=== PATIENT | female | born 1930 | race Caucasian/White ===

== ENCOUNTER 2016-10-05 21:54 | Inpatient (IN) | payer MEDICARE, OTHER ==
--- NOTE | ~2016-10-05 | CN ---
Consultation Report [facility] [address] [place]. [address] NAME: LIVE CEBALLOS : [birth year] STATUS : ADM IN [facility]#: [id number] AGE: 86 ADM/REG DATE : 10/06/16 MR#: [id number] REPORT SERV DATE: 10/06/16 DICTATED BY: ISAIAS VERA DATE: 10/06/16 REPORT STATUS : Draft TRANSCRIBED BY: MODL DATE: 10/06/16 NEUROLOGICAL EVALUATION-CONSULTATION DATE OF CONSULTATION: 10/06/2016 REQUESTING PHYSICIAN: Dr. Lubin and Dr. Fairbanks. HISTORY OF PRESENT ILLNESS: This is an 86-year-old female, with known history of hypertension, peripheral vascular disease, chronic tobacco abuse, hyperlipidemia, history of possible brain aneurysm diagnosed in 2013, who was admitted through the emergency room with history of progressive weakness which started two days prior to admission. The patient apparently developed double vision, had difficulty with her balance, and some left-sided weakness. The patient was initially seen at her primary physician's office and then the following day, presented to the emergency room with worsening of slurring of her speech. There is no prior history of CVA or TIA as per the patient's daughter, who provided most of the history. Neurological consultation was requested to evaluate the patient's change in neurological status and to rule out a CVA. The patient herself stated that she does not have double vision, however, has blurring of vision, she is blind in the right eye, secondary to macular degeneration. The patient maybe less aware of her deficit than her family has been, since, the patient started having change in her status. As per patient's daughter in 2013, the patient was seen by a neurologist, as per the patient's daughter found "cerebral aneurysm in the back of the brain." The patient and family were told that the aneurysm was not operable and that it need to be followed clinically. The patient has not seen a neurologist since 2013. The patient has history of aortic aneurysm repair. During the surgery for aortic aneurysm repair, the patient had developed paroxysmal atrial fibrillation. As per patient's daughter in the past, she has had some periods of "atrial fibrillation" however, as per daughter has not been on anticoagulation. Currently, the patient is on one aspirin a day. MEDICATIONS PRIOR TO ADMISSION: Crestor 20 mg p.o. daily, diltiazem extended release 240 mg daily, melatonin 3 mg at bedtime, metoprolol 50 mg b.i.d., vitamin D, Exelon 9.5 mg p.o. daily, ranitidine 150 mg b.i.d., hydralazine p.r.n. unspecified amount, lisinopril 10 mg daily, and Mirapex 0.25 mg p.o. daily. PAST MEDICAL HISTORY: As mentioned above her past medical history includes history of hypertension, atrial fibrillation as mentioned above, recurrent osteoporosis, aortic aneurysm, status post repair, hypercholesteremia, dementia "mild." PAST SURGICAL HISTORY: history of shoulder surgery, hysterectomy, and abdominal aortic aneurysm repair four years ago. ALLERGIES: NO KNOWN ALLERGY. FAMILY HISTORY: The patient's family has history of hypertension and coronary artery Consultation Report [address] [address] NAME: LIVE CEBALLOS : [birth year] STATUS : ADM IN [facility]#: [id number] AGE: 86 ADM/REG DATE : 10/06/16 MR#: [id number] REPORT SERV DATE: 10/06/16 DICTATED BY: ISAIAS VERA DATE: 10/06/16 REPORT STATUS : Draft TRANSCRIBED BY: FADI DATE: 10/06/16 disease. The patient's father and brother had heart disease. There is no history of a stroke. Except for the patient's sister had a history of possible stroke a few years ago. The patient's daughter, who was present at her bedside stated that there is history of hypertension in the patient's children. REVIEW OF SYSTEMS: The patient and daughter denied recent history of falling, head trauma, history of TIA or CVA. There is no history of seizures. The patient is complaints does include chest pain or shortness of breath. However, the patient did have double vision, weakness involving her left face, and left arm and left leg. Difficulty ambulating and slurred speech. 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 The rest of 14 point of review of system was negative. SOCIAL HISTORY: The patient lives with her sister, who is 92 years old. The patient smokes one pack of cigarettes per week. There is no history of alcohol use. PHYSICAL EXAMINATION: GENERAL: The patient was somnolent, but arousable. Followed simple commands. Her speech was dysarthric. She was not able to provide a history and appears to have mild chronic dementia. VITAL SIGNS: Blood pressure 143/71, pulse was 86, respirations 20, and temperature was 97.8. HEAD AND NECK: Examination showed head to be normocephalic. There was no evidence of trauma. Auscultation of the neck showed no evidence of bruits. EYE: Sclerae were not icteric. Conjunctivae were pink. ENT: Tongue was midline. No atrophy or fibrillations were noted. Palate elevated symmetrically. Airway appeared slightly small. Mallampati class 3. CHEST: Symmetrical. LUNGS: Clear to auscultation. HEART: Regular S1 and S2. I did not appreciate any murmurs or rubs. ABDOMEN: Status post aortic aneurysm repair. Old well-healed postsurgical scar in the midline. EXTREMITIES: No clubbing, cyanosis. There is no peripheral edema. Peripheral pulses were palpable throughout. SKIN: Clear. No ecchymosis, petechiae, hemorrhages, or hypopigmentation noted. NEUROLOGIC: Mental status exam; the patient was aroused very easily, participated in a conversation very little, most of the history is obtained from patient's daughter. The patient herself appeared to have mild dementia, she had no complaints at this time. The patient denied having diplopia, denied having any significant problems. Her speech was dysarthric and difficult to say if there was an element of mild aphasia. Cranial nerve examination 2 through 12: Visual olea on confrontation showed absent vision on the right. Left visual field, the patient on confrontation appeared intact. Extraocular movements showed left eye having partial third nerve palsy. Lateral gaze was preserved with nystagmus and lateral gaze fast component to the left. The right eye showed no evidence of limitation of motion. The patient had no restriction of upward or downward gaze at this Consultation Report [address] [place]. [address] NAME: LIVE CEBALLOS : [birth year] STATUS : ADM IN [facility]#: [id number] AGE: 86 ADM/REG DATE : 10/06/16 MR#: [id number] REPORT SERV DATE: 10/06/16 DICTATED BY: ISAIAS VERA DATE: 10/06/16 REPORT STATUS : Draft TRANSCRIBED BY: FADI DATE: 10/06/16 time. Pupils were 2 to 3 mm both equal and reactive to light. Facial sensation appeared intact as per the patient's response, however, the patient did have a mild left facial weakness. Lower cranial nerves show no evidence of abnormalities. Tongue was midline. No atrophy or fibrillations were noted. Palate elevated symmetrically. The patient was able to shrug her shoulders, and sternocleidomastoid and trapezius muscles appeared intact. No asymmetry was present. Motor exam: At this time, the patient had very minimal left-sided weakness noted with a very mild pronator drift on the left. The patient was able to move all four extremities. Strength difficult to estimate appeared intact on the right and on the left 4+ to 5-/5. Deep tendon reflexes were symmetrical. Equivocal Babinski on the left. Sensory exam showed no evidence of asymmetry to temperature and light touch. The patient however had minimal left-sided sensory neglect. Cerebellar exam showed very minimal ataxia on [id number]. Left slightly greater than right. Gait could not be tested at this time. DIAGNOSTIC DATA: CT scan of the head showed evidence of prior infarction involving the left occipital region. Moderate chronic microvascular ischemic changes were seen also, which was commented on by radiology showing since the prior exam. 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 The encephalomalacia in the left occipital region is new from 2013. IMPRESSION: 1. Probable [id number] brainstem cerebrovascular accident. The patient has signs of accident. 2. The patient has signs of previous cerebrovascular accident in posterior cerebral artery and posterior circulation distribution, new since 2013. 3. Abnormal configuration of the basilar artery noted on CT with a definite displacement of the brainstem region adjacent, although, appears the same since 2014. The patient will require additional imaging studies. 4. Increased risk of stroke and the patient's risk factors include hypertension, hyperlipidemia, chronic tobacco abuse, prior history of strokes, peripheral vascular disease, and family history of coronary artery disease, hypertension, and stroke in patient's sister. Additional risk factor, the patient has recurrent atrial fibrillation or paroxysmal atrial fibrillation. The patient has not been on anticoagulation. Anticoagulation may present the potential risk in patient with known history of cerebral aneurysm. 5. History of mild dementia. 6. Probable chronic obstructive pulmonary disease. 7. The patient is at risk for obstructive sleep apnea having a small airway and recent strokes perhaps brainstem stroke. At present, would continue aspirin. Obtain MRI, MRA, DVT prophylaxis, stroke education, smoking cessation, physical therapy, occupational therapy, and speech therapy to evaluate for increased risk of aspiration. The patient also has an increased risk of falling and injury. Follow stroke guidelines and protocol. We will continue following the patient. Review neurosurgical referral Consultation Report [address] [place]. [address] NAME: LIVE CEBALLOS : [birth year] STATUS : ADM IN [facility]#: [id number] AGE: 86 ADM/REG DATE : 10/06/16 MR#: [id number] REPORT SERV DATE: 10/06/16 DICTATED BY: ISAIAS VERA DATE: 10/06/16 REPORT STATUS : Draft TRANSCRIBED BY: FADI DATE: 10/06/16 if needed. Thank you for allowing me to participate in this patient's care. BAYRON/FADI Isaias Vera MD / [id number] CC: MD Hiram Bolaños Jr., M.D.
--- NOTE | ~2016-10-05 | CN ---
Consultation Report [facility] [address] [place]. [address] NAME: LIVE CEBALLOS : [birth year] STATUS : ADM IN [facility]#: [id number] AGE: 86 ADM/REG DATE : 10/06/16 MR#: [id number] REPORT SERV DATE: 10/07/16 DICTATED BY: ALIRIO ORTIZ DATE: 10/07/16 REPORT STATUS : Draft TRANSCRIBED BY: MODL DATE: 10/07/16 CARDIOLOGY CONSULT DATE OF CONSULTATION: 10/07/2016 REQUESTING PHYSICIAN: Dr. Krueger of the Hospitalist Service. REASON FOR CONSULTATION: Atrial fibrillation with rapid ventricular response. HISTORY OF PRESENT ILLNESS: Ms. Ceballos is an 86-year-old female, who is brought to the ER by family with acute-onset left-sided weakness and hemiparesis with dysarthria consistent with an acute CVA. She was seen by Neurology and evaluated. 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 A followup MRI did confirm acute CVA as well as vertebral artery, basilar aneurysm changes with mass-effect. In this setting, she has had paroxysms of atrial fibrillation with rapid ventricular response at rate of 130-140 beats per minute. She otherwise, appears to be asymptomatic with this, but history is difficult to obtain as she does have dysarthria. She denies having any chest pain or shortness of breath. She denies palpitations. She has had no orthopnea or edema. REVIEW OF SYSTEMS: Pertinent positives and negatives are as outlined above, all others are negative. PAST MEDICAL HISTORY: 1. History of paroxysmal atrial fibrillation, remote. 2. Peripheral arterial disease, status post AAA endovascular repair. 3. Hypertension. 4. Hyperlipidemia. 5. Vascular dementia. CURRENT HOME MEDICATIONS: 1. Aspirin 81 mg daily. 2. Calcium with vitamin D supplementation. 3. Meclizine p.r.n. 4. Klonopin p.r.n. 5. Vitamin B12 supplementation. 6. Amitiza as needed. 7. Metoprolol 50 mg twice daily. 8. Zantac 150 mg twice daily. 9. Crestor 20 mg daily. 10.Potassium supplementation. ALLERGIES: NO KNOWN DRUG ALLERGIES. SOCIAL HISTORY: Ms. Ceballos lives at home with her 92-year-old sister. Prior to Consultation Report [facility] [address] [address] NAME: LIVE CEBALLOS : [birth year] STATUS : ADM IN [facility]#: [id number] AGE: 86 ADM/REG DATE : 10/06/16 MR#: [id number] REPORT SERV DATE: 10/07/16 DICTATED BY: ALIRIO ORTIZ DATE: 10/07/16 REPORT STATUS : Draft TRANSCRIBED BY: MODL DATE: 10/07/16 presentation of the acute CVA, she was independent of all ADLs. She does not use tobacco products or consume alcohol. FAMILY HISTORY: Noncontributory. No significant family history of premature CAD or cardiomyopathy. PHYSICAL EXAMINATION: VITALS: Temperature is 98, pulse is 90, respirations 16, and blood pressure is 170/80. GENERAL: A well-developed, frail appearing female, who is currently in no acute distress. HEENT: Sclerae anicteric, mucous membranes moist and without lesions. NECK: No jugular venous distention. No hepatojugular reflux, carotid upstrokes 2+ and symmetric. There are no carotid or subclavian bruit. LUNGS: Mildly decreased breath sounds throughout. No wheezes or crackles. CARDIOVASCULAR: Currently regular with distant S1 and S2. No audible S3. No audible murmurs. No parasternal lift. PMI is not palpable. ABDOMEN: Soft and nontender with positive and normoactive bowel sounds. PULSES: Radial and dorsalis pedis pulses are 1+ and symmetric. EXTREMITIES: Warm and without edema. SKIN: No clubbing or cyanosis, no rashes or lesions. NEUROLOGIC: Left upper and left lower extremity 1-2/5 in strength. Dysarthria noted. IMPRESSION: 1. Paroxysmal atrial fibrillation with rapid ventricular response. 2. Cerebrovascular accident, acute. 3. Vertebrobasilar artery aneurysm with mass-effect. 4. Hypertension. 5. History of peripheral arterial disease, status post abdominal aortic aneurysm repair. 6. Hyperlipidemia. PLAN: Ms. Ceballos is a frail 86-year-old female with an acute CVA complicated by left hemiparesis and dysarthria. She will need rehabilitation placement and half-way facility care as she currently lives at home with her 92-year-old sister. Her care was complicated by vertebrobasilar artery aneurysm with mass-effect. Her care was directly discussed with Neurology given high risk for recurrent CVA and high risk for intracranial hemorrhage with anticoagulation. At this time, it has been deemed most appropriate to treat her more conservatively. She is felt to be a prohibitive risk for anticoagulation at this time. We will prescribe Plavix 75 mg daily with 81 mg aspirin daily. With this, we will pursue more aggressive rhythm control by increasing metoprolol to 50 mg three times daily and adding low-dose amiodarone 100 mg daily. Continue current conservative medical management. Care plan was discussed with family at bedside. WES/FADI Consultation Report [address] [place]. [address] NAME: LIVE CEBALLOS : [birth year] STATUS : ADM IN PAT#: [id number] AGE: 86 ADM/REG DATE : 10/06/16 MR#: [id number] REPORT SERV DATE: 10/07/16 DICTATED BY: ALIRIO ORTIZ DATE: 10/07/16 REPORT STATUS : Draft TRANSCRIBED BY: FADI DATE: 10/07/16 Alirio Ortiz M.D. / [id number] CC: MD Hiram Bolaños Jr., M.D.
--- NOTE | ~2016-10-05 | DS ---
Discharge Summary [facility] [address] [place]. [address] NAME: LIVE CEBALLOS : [birth year] STATUS : DIS IN PAT#: [id number] AGE: 86 ADM/REG DATE : 10/06/16 MR#: [id number] REPORT SERV DATE: 10/14/16 DICTATED BY: KARLY TOBIN DATE: 10/12/16 REPORT STATUS : Draft TRANSCRIBED BY: MODL DATE: 10/12/16 ADMISSION DATE: 10/06/2016 DISCHARGE DATE: 10/12/2016 CONSULTANTS: Isaias Vera MD; Dr. Sachi Holder, Neurology; Alirio Villeda M.D.; Narayan Patel M.D.; and Dr. Uriel Morales, Cardiology. DISCHARGE DIAGNOSES: 1. 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 3. Atrial fibrillation with rapid ventricular response. 4. Sick sinus syndrome requiring pacemaker placement this hospitalization for tachycardia- bradycardia. 5. Senile dementia. 6. Episode of metabolic encephalopathy, now resolved. 7. Peripheral arterial disease with previous repair of abdominal aortic aneurysm, 2006. 8. Macular degeneration with blindness, right eye. 9. Hypertension. HISTORY: This patient presented with weakness, left side arm and leg, slurring of the speech. It began about 2 days prior to her presentation. The patient had a CT scan of the brain showing 1.7 cm focal encephalomalacia, medial left occipital lobe, new from 2013, but appeared chronic. Mild diffuse chronic atrophy. Moderate deep white matter changes and dolichoectasia of the basilar artery at the level of the foramen magnum. The patient was seen the day of admission early on by neurologist, Dr. Vera. She felt the patient probably had an acute brainstem infarction, felt the patient was too delayed to proceed with tPA. The patient was referred to our team for inpatient care. Further imaging included MRI of the brain, which revealed an acute right pontine infarct, electronic equipment maint tech branch distribution. No bleeding. Aneurysm changes of the basilar artery with dolichoectasia of the vertebrobasilar system and mass effect on the brainstem. The family indicated that several years back, prior to 2013, the patient was found to have basilar artery aneurysm and it was not felt to be surgical. The family made it clear that the patient was DNR and do not intubate. This is based on the patient's prior descriptions to them of her wishes and her age and condition. For the patient's stroke, she was given aspirin high dose, statin, Plavix to reduce her chcf risk of secondary stroke. Echocardiogram 10/07/2016 showed left atrial size 3.4 cm, left ventricular ejection fraction 60%, aortic valvular sclerosis but no aortic stenosis. There was negative bubble study. MRA of the neck showed diffuse atherosclerotic changes with aneurysm of the basilar and carotid terminus on the left side. Diffuse atherosclerotic changes of the carotid siphons also. Further in the neck, there was less than 50% stenosis of the internal carotid arteries. The patient was felt by PT and OT to need inpatient rehab. Those arrangements were in process but the patient was developing paroxysms of atrial fibrillation with rapid Discharge Summary [address] [place]. [address] NAME: LIVE CEBALLOS : [birth year] STATUS : DIS IN PAT#: [id number] AGE: 86 ADM/REG DATE : 10/06/16 MR#: [id number] REPORT SERV DATE: 10/14/16 DICTATED BY: KARLY TOBIN DATE: 10/12/16 REPORT STATUS : Draft TRANSCRIBED BY: MODAntoni DATE: 10/12/16 ventricular response. The patient's TSH is normal at 0.916. The patient was seen by Cardiology, Dr. Villeda, and placed on metoprolol and low-dose amiodarone. Unfortunately, she continued to have more frequent episodes of paroxysmal atrial fibrillation with very rapid ventricular response requiring increased quantity of beta drew and amiodarone and Cardizem to try to slow her down. She still was having very rapid rates and then suddenly developed significant sinus bradycardia on the morning of 10/10/2016 with heart rates in the 30s. Fortunately, her neurologic status did not worsen, her O2 sats were normal, her blood pressure was normal, but her heart rate continued to stay in the 30s. I gave her one dose of glucagon. Her heart rate came up to the 40s and 50s. Cardiology saw the patient, Dr. Patel, and they felt that with her sick sinus syndrome and tachycardia-bradycardia, it would be impossible to control her tachycardia without risking profound bradycardia, therefore the patient and family were advised to have a pacemaker placed. Dr. Morales placed a dual chamber pacemaker on 10/11/2016. The patient tolerated it very well. Thereafter, Dr. Morales re-initiated medicines that we had held because of her bradycardia. He started her back on amiodarone at 200 mg t.i.d., metoprolol 50 mg t.i.d., Cardizem 30 mg p.o. t.i.d. Holding metoprolol or Cardizem if blood pressure less than 100. With this, the patient has had control of her rapid heart rate and no bradycardia. She is felt to need inpatient rehab and those arrangements have been made. She is to follow up with Dr. Villeda at [facility], 11/22/2016 at 0815 and follow up with the pacemaker clinic at [facility], 10/28/2016 at 08:15 a.m. Also, longitudinally follow up with Dr. Hiram Solano, her primary provider in [place]. Plan is for her to go to [facility] for rehab. DISCHARGE MEDICATIONS: Aspirin 81 mg daily; Lipitor 80 mg daily; amiodarone 200 mg t.i.d. (Cardiology will likely taper this dose down when they see her in followup); Plavix 75 mg daily; vitamin B12 at 1000 mcg injected every 30 days into the muscle; Caltrate with vitamin D 600 mg daily; Cardizem 30 mg q.8 hours, hold if systolic less than 100; metoprolol 50 mg q.8 hours, hold if systolic less than 100; Seroquel 12.5 mg at bedtime to help her with sleep which has been a significant part of her dementia in the past and this has helped considerably; Tylenol 650 q.4 hours p.r.n. pain; Amitiza 8 mg b.i.d. p.r.n. constipation; MiraLAX one packet daily p.r.n.; Klonopin 0.25 mg at bedtime p.r.n. insomnia; Crestor 20 mg at bedtime; artificial tears p.r.n.; Zantac 150 mg b.i.d. p.r.n. indigestion. I spent 36 minutes today with the patient and her son with discharge planning. DARWIN/FADI Karly Tobin M.D. / [id number] CC: Discharge Summary [address] [address] NAME: LIVE CEBALLOS : [birth year] STATUS : DIS IN PAT#: [id number] AGE: 86 ADM/REG DATE : 10/06/16 MR#: [id number] REPORT SERV DATE: 10/14/16 DICTATED BY: KARLY TOBIN DATE: 10/12/16 REPORT STATUS : Draft TRANSCRIBED BY: MODL DATE: 10/12/16 Annelise Ferrera Jr., M.D. [facility]
--- NOTE | ~2016-10-05 | CN ---
Consultation Report [facility] [address] [place]. [address] NAME: LIVE CEBALLOS : [birth year] STATUS : ADM IN PAT#: [id number] AGE: 86 ADM/REG DATE : 10/06/16 MR#: [id number] REPORT SERV DATE: 10/11/16 DICTATED BY: POLA PATEL DATE: 10/10/16 REPORT STATUS : Draft TRANSCRIBED BY: MODL DATE: 10/10/16 EP CONSULTATION DATE OF CONSULTATION: INDICATION: Sick sinus syndrome (tachy-vel syndrome). HISTORY: The patient is an 86-year-old white female, who is admitted 10/07/2016, with a left sided weakness and dysarthria. 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 She has had slow improvement of her motor skills. She is able to speak clearly, albeit slowly. She had developed atrial fibrillation with a ventricular response rate of 140 beats per minute. She had initially returned to sinus rhythm, but then redeveloped her atrial fib. She was given beta drew, amiodarone, as well as diltiazem. With the drug therapy, she has returned to sinus rhythm albeit with an extremely slow ventricular response rate in the 30 to 40 beat per minute range. This has also been associated with fatigue and sleepiness. Because of this, we are asked to see her for consideration of pacemaker placement. CURRENT HOME MEDICATIONS: Aspirin 81 a day, calcium plus D, clonazepam 0.25 at bedtime, cyanocobalamin, Amitiza 8 mg p.r.n., meclizine 12.5 daily, metoprolol 50 b.i.d., potassium 550 mg b.i.d., rosuvastatin 20 a day, ranitidine 150 b.i.d. ALLERGIES: INTOLERANCES, NONE KNOWN. SOCIAL HISTORY: Lives with her sister, who is 92. The son is in attendance. She smokes one pack of cigarettes per day, no alcohol use. FAMILY HISTORY: Positive for hypertension and coronary disease. The patient's father and brother had heart disease. No history of stroke except for the patient's sister, who may have had a stroke number of years ago. PAST MEDICAL HISTORY AND REVIEW OF SYSTEMS: Include hypertension, a sick sinus syndrome as noted above, previous abdominal aortic aneurysm repair (open repair), hyperlipidemia, mild cognitive dysfunction, cerebral aneurysm initially discovered in 2013. The patient is not on anticoagulation due to the cerebral aneurysm finding. PHYSICAL EXAMINATION: GENERAL: An 86-year-old white female presently blood pressure 163/88, pulse 38 and regular, respirations 18. SKIN: No xanthelasmas. HEENT: She is normocephalic. There is no pallor. Sclerae white. JVD is not elevated. CHEST: No crackles. CARDIAC: S1 normal, S2 is physiologic. No gallops or murmurs. ABDOMEN: Without tenderness. EXTREMITIES: Without edema. No clubbing. Consultation Report [place] [id number] [place] [place]. [address] NAME: LIVE CEBALLOS : [birth year] STATUS : ADM IN [facility]#: [id number] AGE: 86 ADM/REG DATE : 10/06/16 MR#: [id number] REPORT SERV DATE: 10/11/16 DICTATED BY: POLA PATEL DATE: 10/10/16 REPORT STATUS : Draft TRANSCRIBED BY: MODAntoni DATE: 10/10/16 NEUROLOGIC: There is a partial third nerve palsy, minimal left-sided weakness. Mild pronator drift. Asymmetry to touch. Slight ataxia on finger to nose per Neurology. The patient likely also has sleep apnea, although this may be a central phenomenon. LABORATORY DATA: BUN 16, creatinine 1.2, potassium 3.1, white count 8.8, hemoglobin 13.5. IMPRESSION: Sick sinus syndrome. She clearly is not going to tolerate rate control and by the time we are able to control her rate, she becomes bradycardiac. A pacemaker support appears reasonable given the clinical presentation. Risks and benefits have been discussed with her son. I have told her likely Dr. Morales will be the implanting physician. RIK/FADI Pola Patel M.D. / [id number] CC: Annelise Ferrera Jr., M.D. [facility]
--- NOTE | ~2016-10-05 | HP ---
History And Physical [place] [id number] [place]. [address] NAME: LIVE CEBALLOS : [birth year] STATUS : ADM IN [facility]#: [id number] AGE: 86 ADM/REG DATE : 10/06/16 MR#: [id number] REPORT SERV DATE: 10/06/16 DICTATED BY: SHON JEAN-BAPTISTE DATE: 10/06/16 REPORT STATUS : Draft TRANSCRIBED BY: MODAntoni DATE: 10/06/16 DATE OF ADMISSION: 10/06/2016 CHIEF COMPLAINT: Increased confusion and weakness and change in speech. HISTORY OF PRESENT ILLNESS: The patient is an 86-year-old female with past medical history of hypertension, paroxysmal atrial fibrillation during surgery for abdominal aneurysm with subsequent resolution, dementia, hyperlipidemia, and a history of brain aneurysm, who presents after having progressive weakness, left sided over right, requiring increased assistance that occurred approximately at 4:00 to 4:30 today. The patient in addition has a history of slight slurring and decompensation of speech but today was significantly more pronounced than normal. Symptoms are constant and moderate to severe in severity. No pain quality symptoms or radiating symptoms. There is no associated nausea, vomiting, fever, or chills but did have increased weakness including no ability to even go to the bathroom without assistance, requiring two-people assist just to get to the bathroom which normal she is able to. Has only mild assist to do ADLs. Symptoms are reproducible with activity but no relieving symptoms, still currently present at bedside. The patient also has had mild diplopia but able to tolerate food. REVIEW OF SYSTEMS: GENERAL: No fever or chills but increased weakness. HEENT: Eyes, does have mild diplopia and does have history of macular degeneration. ENT: No sinus drainage or sore throat. NEUROLOGIC: Does have numbness and weakness in the left arm, speech changes, and vision changes. SKIN: No rashes or bruising. RESPIRATORY: No shortness of breath or cough. CV: No chest pain or palpitations. GI: No nausea, vomiting, or diarrhea. : No dysuria or hematuria. MUSCULOSKELETAL: No myalgias or arthralgias, above baseline. ENDO: No fatigue or polyuria. HEME: No bleeding or bruising. IMMUNOLOGIC: No rhinorrhea per stated. PSYCHIATRIC: No anxiety but does have history of dementia. PAST MEDICAL HISTORY: Noted for hypertension; hyperlipidemia; atrial fibrillation, resolved, but was reported paroxysmal secondary to abdominal aneurysm; osteoporosis; AAA, status post repair; and smoking history. PAST SURGICAL HISTORY: Shoulder surgery, hysterectomy, and AAA. ALLERGIES: NO KNOWN DRUG ALLERGIES. SOCIAL HISTORY: Lives with sister who is in her 90s. Continues to smoke. No alcohol. Multiple children. No illicits. History And Physical [address] [place]. [address] NAME: LIVE CEBALLOS : [birth year] STATUS : ADM IN [facility]#: [id number] AGE: 86 ADM/REG DATE : 10/06/16 MR#: [id number] REPORT SERV DATE: 10/06/16 DICTATED BY: SHON JEAN-BAPTISTE DATE: 10/06/16 REPORT STATUS : Draft TRANSCRIBED BY: FADI DATE: 10/06/16 FAMILY HISTORY: Heart disease and mother had stomach issues. PHYSICAL EXAMINATION: VITAL SIGNS: Patient's blood pressure is 168/89, temperature is 98, pulse is 87, respirations are 16, and O2 saturations 96% on room air. GENERAL: Elderly but in no acute distress. HEENT: Eyes: Does have left eye with left lateral gaze noted, decreased medial draw with left eye, and left eye with right-side beating nystagmus. At baseline, the patient does have central loss of vision due to degenerative changes and follows with Ophthalmology as an outpatient. ENT: Nares patent. Tongue with left-sided deviation. RESPIRATORY: Clear to auscultation. No wheezes. CV: Regular rate. No rubs. GI: Soft, nontender, and nondistended. Bowel sounds positive. : Deferred. MUSCULOSKELETAL: Moves all extremities, however, left side grossly weaker than right side. SKIN: Warm and dry. LYMPH: No cervical lymphadenopathy. HEME: No bleeding or bruising. NEUROLOGIC: Does have left eye lateral deviation with medial nystagmus. Right eye, central chronic loss of vision due to macular degeneration changes. Still has preserved peripheral vision in the right eye. The left eye has decreased medial vision due to gaze, difficulty with tracking on zulwqq-lq-cxxi. Tongue with left-sided deviation. Does have symmetrical brow wrinkle. Possibly mild facial deviation but minimal on current exam. Left hand significantly weaker than the right hand but sensation is intact, although the patient does report numbness feeling despite sensation. Left leg weaker than right, approximately 4 on left side, 4+ on right upper and lower extremities. Gait not tested. PSYCHIATRIC: Appropriate mood and affect. Pleasant, joking manner, but is hard of hearing. LABORATORY DATA: Brain without contrast, no acute intracranial pathology, ohjgm-tt-etgukjaa 1.7-cm diameter focal encephalomalacia, medial left occipital lobe, new from 2013, chronic well circumcised appearance, mild diffuse cerebral involutional changes, and mild-to- moderate deep white matter chronic microvascular changes, progressed since 2014, stable. 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 WBC count 13.7. H and H 12.8 and 37.8. Platelets 133. INR 1.1. Sodium 141, potassium 3.3, chloride 102, bicarb 27, and BUN and creatinine 19 and 1.04. Glucose 89. LFTs within normal limits. Troponin negative. Urinalysis, negative nitrite and leuk esterase. However, the patient family reports that 24 hours ago the patient did have positive UA and is currently on treatment for positive cultures. HOME MEDICATIONS: Artificial tears, aspirin, Caltrate, Klonopin, vitamin B12. Amitiza, meclizine, Lopressor, potassium gluconate, Zantac, and Crestor. ASSESSMENT: 1. Likely blmiq-tr-uhprvxeq stroke, non tPA candidate. 2. Hypertension. 3. Urinary tract infection with leukocytosis. 4. Dementia. History And Physical [address] [address] NAME: LIVE CEBALLOS : [birth year] STATUS : ADM IN [facility]#: [id number] AGE: 86 ADM/REG DATE : 10/06/16 MR#: [id number] REPORT SERV DATE: 10/06/16 DICTATED BY: SHON JEAN-BAPTISTE DATE: 10/06/16 REPORT STATUS : Draft TRANSCRIBED BY: FADI DATE: 10/06/16 5. Paroxysmal atrial fibrillation. 6. Hyperlipidemia. 7. Hypokalemia. 8. Tobacco use. PLAN: 1. For stroke, ADLs discussed with Neurology, non tPA candidate, time frame greater than 4 hours. Does have history of aneurysm. Does have clinical signs of left eye deviation, left tongue deviation, left-sided weakness greater than right. Abnormal CT, will have Neurologic consult, stroke order set initiated. CT abnormalities noted above. 2. Hypertension, exercise until permissive, will resume home medications. 3. UTI, leukocytosis, IV fluids, IV antibiotics, currently UA negative, however, has already received 24 hours of treatment, p.o., unclear on medications .. 4. Dementia, it appears mental status is slightly at baseline; however, motor status decompensated, treat possible underlying mubum-dp-nvafzqcl stroke. 5. Paroxysmal atrial fibrillation, this was secondary to surgery induced, previously saw Dr. Ricks, and has been signed off since. 6. Hyperlipidemia, statin. 7. Hypokalemia, replace. 8. Tobacco use, nicotine patch. All questions answered with the patient's family at bedside. Anticipate greater than two midnights inpatient stay. DDN/MODL Shon Jean-Baptiste MD / [id number] CC: Annelise Mason JR
[2016-10-05 21:47] LABS: BASOPHILS 0.1 %; BASOPHILS ABSOLUTE 0.02 10/3/uL (0.0-0.16); EOSINOPHILS 2.8 %; EOSINOPHILS ABSOLUTE 0.39 10/3/uL (0.0-0.53); HEMOGLOBIN 12.8 g/dL (12.0-16.0); IMMATURE GRANULOCYTES 0.3 %; IMMATURE GRANULOCYTES ABSOLUTE 0.04 10/3/uL (0.0-0.11); LYMPHOCYTES 12.2 %; LYMPHOCYTES ABSOLUTE 1.67 10/3/uL (0.67-4.30); MEAN CORPUS HGB CONC 33.9 g/dL (32.0-36.0); MEAN CORPUSCULAR HEMOGLOB 31.4 pg (26.0-34.0); MEAN PLATELET VOLUME 11.7 fL (9.2-13.0); MONOCYTES 6.7 %; MONOCYTES ABSOLUTE 0.92 10/3/uL (0.21-1.20); NEUTROPHILS 77.9 %; NEUTROPHILS ABSOLUTE 10.65 10/3/uL (2.02-8.40); PLATELET COUNT 133 10/3/uL (150-400); RBC DISTRIBUTION WIDTH 13.3 % (12.0-16.0); RED CELL COUNT 4.08 10/6/uL (4.0-5.6)
[2016-10-05 21:48] LABS: HEMATOCRIT 37.8 % (36.0-48.0); MEAN CORPUSCULAR VOLUME 92.6 fL (80-100); WHITE BLOOD CELLS 13.7 10/3/uL (4.5-10.5)
[2016-10-05 21:49] LABS: MANUAL DIFF NO %
[~2016-10-05 21:54] MED LIST: AMITIZA PO; AT25 PO; C1 PO; CARTIA XT240 MG/24 PO; CRESTOR20 MG PO; EXELON9.5T TOP; LOP50 PO; MELA3 PO; MIRAPEX250 PO; VITAMIN D 3 PO; ZANTAC150 MG PO; ZESTRIL10 MG PO
[2016-10-05 22:02] LABS: INTERNATIONAL NORMAL RATI 1.1 UNITS (-); PARTIAL THROMBO TIME 27.6 SEC (22.5-37.2); PROTIME (NOT ORD) 13.8 SEC (12.0-14.5)
[2016-10-05 22:05] LABS: ALBUMIN 3.6 G/DL (3.5-5.0); ALKALINE PHOSPHATASE 61 U/L (45-117); CALCIUM, SERUM 8.5 MG/DL (8.5-10.4); CHEST PAIN PROFILE TAT 0 Hrs 21 Mins; CHLORIDE, SERUM 102 MMOL/L (96-112); CO2 (CARBON DIOXIDE) 27 MMOL/L (24-34); CREATININE 1.04 MG/DL (0.55-1.02); DIRECT BILIRUBIN 0.2 MG/DL (0.0-0.4); GFR AFRICAN AMERICAN 56 ML/MIN (>=60); GFR NON AFRICAN AMERICAN 48 ML/MIN (>=60); GLUCOSE, SERUM 89 MG/DL (60-99); INDIRECT BILIRUBIN(NOT ORDER) 0.3 MG/DL (0.1-0.9); POTASSIUM, SERUM 3.3 MMOL/L (3.5-5.3); SGOT(AST) 14 U/L (5-40); SGPT(ALT) 13 U/L (5-65); SODIUM, SERUM 141 MMOL/L (135-148); TOTAL BILIRUBIN 0.5 MG/DL (0-1.2); TOTAL PROTEIN 7.4 G/DL (6.0-8.5); TROPONIN I <0.02 NG/ML (<0.05)
[2016-10-05 22:10] LABS: BUN (BLOOD UREA NITROGEN) 19 MG/DL (6-23)
[2016-10-05 23:29] LABS: ASCORBIC ACID (UR NOT ORDER) NEG (NEG); BILIRUBIN, URINE NEGATIVE (NEG); ER URINALYSIS TAT 0 Hrs 00 Mins; KETONE, URINE 20 MG/DL (NEG); LEUKOCYTE ESTERASE(NOT OR NEG (NEG); NITRITE (URINE) NEG (NEG); WBC (NOT ORDERED) (RFLEX) 2 (0-5)
[2016-10-06] MEDS ORDERED: ASAB PO (00:26)
[2016-10-06] MEDS ORDERED: LOP50 PO (00:27)
[2016-10-06] MEDS ORDERED: B121000P IM (00:27)
[2016-10-06] MEDS ORDERED: KLONO5 PO (00:27)
[2016-10-06] MEDS ORDERED: CALTRA600D PO (00:27)
[2016-10-06] MEDS ORDERED: POT GLUCONAT2.5 MEQ PO (00:27)
[2016-10-06] MEDS ORDERED: CRESTOR20 MG PO (00:27)
[2016-10-06] MEDS ORDERED: AMITIZA8 MCG PO (00:28)
[2016-10-06] MEDS ORDERED: ZANTAC150 MG PO (00:28)
[2016-10-06] MEDS ORDERED: BION TEARS OPH (00:29)
[2016-10-06] MEDS ORDERED: MCZ125 PO (00:29)
[2016-10-06 09:59] LABS: ALBUMIN 3.1 G/DL (3.5-5.0); CHLORIDE, SERUM 109 MMOL/L (96-112); CO2 (CARBON DIOXIDE) 24 MMOL/L (24-34); CREATININE 0.83 MG/DL (0.55-1.02); GFR AFRICAN AMERICAN 73 ML/MIN (>=60); GFR NON AFRICAN AMERICAN 63 ML/MIN (>=60); GLOBULIN 3.2 G/DL (2.5-4.1); GLUCOSE, SERUM 77 MG/DL (60-99); POTASSIUM, SERUM 3.2 MMOL/L (3.5-5.3); SGOT(AST) 12 U/L (5-40); SGPT(ALT) 9 U/L (5-65); SODIUM, SERUM 144 MMOL/L (135-148); TOTAL BILIRUBIN 0.5 MG/DL (0-1.2); TOTAL PROTEIN 6.3 G/DL (6.0-8.5); TRIGLYCERIDE 75 MG/DL (< 150); ULTRASENSITIVE TSH 0.916 MCIU/ML (0.358-3.740)
[2016-10-06 10:01] LABS: ALKALINE PHOSPHATASE 47 U/L (45-117); BUN (BLOOD UREA NITROGEN) 12 MG/DL (6-23); CALCIUM, SERUM 7.3 MG/DL (8.5-10.4); CHOL/HDL RATIO(NOT ORDER) 2.1 (0-5); CHOLESTEROL 101 MG/DL (< 200); HDL CHOLESTEROL 48 MG/DL (> 49); LDL CHOLESTEROL 38 MG/DL (< 130); NON-HDL CHOLESTEROL 53 MG/DL (< 160)
[2016-10-06 11:22] LABS: BASOPHILS 0.4 %; BASOPHILS ABSOLUTE 0.03 10/3/uL (0.0-0.16); EOSINOPHILS 4.3 %; EOSINOPHILS ABSOLUTE 0.37 10/3/uL (0.0-0.53); HEMOGLOBIN 11.3 g/dL (12.0-16.0); IMMATURE GRANULOCYTES 0.1 %; IMMATURE GRANULOCYTES ABSOLUTE 0.01 10/3/uL (0.0-0.11); LYMPHOCYTES 19.8 %; LYMPHOCYTES ABSOLUTE 1.69 10/3/uL (0.67-4.30); MEAN CORPUS HGB CONC 33.4 g/dL (32.0-36.0); MEAN CORPUSCULAR HEMOGLOB 31.3 pg (26.0-34.0); MEAN CORPUSCULAR VOLUME 93.6 fL (80-100); MEAN PLATELET VOLUME 12.4 fL (9.2-13.0); MONOCYTES 8.8 %; MONOCYTES ABSOLUTE 0.75 10/3/uL (0.21-1.20); NEUTROPHILS 66.6 %; NEUTROPHILS ABSOLUTE 5.68 10/3/uL (2.02-8.40); PLATELET COUNT 119 10/3/uL (150-400); RBC DISTRIBUTION WIDTH 13.7 % (12.0-16.0); RED CELL COUNT 3.61 10/6/uL (4.0-5.6); WHITE BLOOD CELLS 8.5 10/3/uL (4.5-10.5)
[2016-10-06 11:25] LABS: HEMATOCRIT 33.8 % (36.0-48.0); MANUAL DIFF NO %
[2016-10-06 11:29] LABS: PARTIAL THROMBO TIME 32.7 SEC (22.5-37.2)
[2016-10-06 11:30] LABS: INTERNATIONAL NORMAL RATI 1.1 UNITS (-); PROTIME (NOT ORD) 14.5 SEC (12.0-14.5)
[2016-10-07 06:11] LABS: BASOPHILS 0.2 %; BASOPHILS ABSOLUTE 0.02 10/3/uL (0.0-0.16); EOSINOPHILS 4.4 %; EOSINOPHILS ABSOLUTE 0.43 10/3/uL (0.0-0.53); IMMATURE GRANULOCYTES 0.4 %; IMMATURE GRANULOCYTES ABSOLUTE 0.04 10/3/uL (0.0-0.11); LYMPHOCYTES ABSOLUTE 1.47 10/3/uL (0.67-4.30); MEAN CORPUS HGB CONC 33.2 g/dL (32.0-36.0); MEAN CORPUSCULAR HEMOGLOB 31.2 pg (26.0-34.0); MEAN PLATELET VOLUME 12.2 fL (9.2-13.0); MONOCYTES 7.3 %; MONOCYTES ABSOLUTE 0.71 10/3/uL (0.21-1.20); NEUTROPHILS 72.7 %; PLATELET COUNT 139 10/3/uL (150-400); RBC DISTRIBUTION WIDTH 13.4 % (12.0-16.0); RED CELL COUNT 4.17 10/6/uL (4.0-5.6); WHITE BLOOD CELLS 9.8 10/3/uL (4.5-10.5)
[2016-10-07 06:12] LABS: HEMATOCRIT 39.2 % (36.0-48.0); MANUAL DIFF NO %
[2016-10-07 06:23] LABS: BUN (BLOOD UREA NITROGEN) 9 MG/DL (6-23); CHLORIDE, SERUM 107 MMOL/L (96-112); CO2 (CARBON DIOXIDE) 23 MMOL/L (24-34); CREATININE 0.83 MG/DL (0.55-1.02); GFR AFRICAN AMERICAN 73 ML/MIN (>=60); GFR NON AFRICAN AMERICAN 63 ML/MIN (>=60); GLUCOSE, SERUM 76 MG/DL (60-99); SODIUM, SERUM 143 MMOL/L (135-148)
[2016-10-07 06:26] LABS: CALCIUM, SERUM 8.6 MG/DL (8.5-10.4); POTASSIUM, SERUM 3.6 MMOL/L (3.5-5.3)
[2016-10-10 05:58] LABS: BASOPHILS 0.6 %; BASOPHILS ABSOLUTE 0.05 10/3/uL (0.0-0.16); EOSINOPHILS ABSOLUTE 0.44 10/3/uL (0.0-0.53); HEMATOCRIT 40.3 % (36.0-48.0); HEMOGLOBIN 13.5 g/dL (12.0-16.0); IMMATURE GRANULOCYTES 0.1 %; IMMATURE GRANULOCYTES ABSOLUTE 0.01 10/3/uL (0.0-0.11); LYMPHOCYTES 35.2 %; LYMPHOCYTES ABSOLUTE 3.08 10/3/uL (0.67-4.30); MEAN CORPUS HGB CONC 33.5 g/dL (32.0-36.0); MEAN CORPUSCULAR HEMOGLOB 30.9 pg (26.0-34.0); MEAN CORPUSCULAR VOLUME 92.2 fL (80-100); MONOCYTES 11.3 %; MONOCYTES ABSOLUTE 0.99 10/3/uL (0.21-1.20); NEUTROPHILS 47.8 %; NEUTROPHILS ABSOLUTE 4.19 10/3/uL (2.02-8.40); PLATELET COUNT 176 10/3/uL (150-400); RBC DISTRIBUTION WIDTH 13.2 % (12.0-16.0); RED CELL COUNT 4.37 10/6/uL (4.0-5.6); WHITE BLOOD CELLS 8.8 10/3/uL (4.5-10.5)
[2016-10-10 05:59] LABS: MANUAL DIFF NO %
[2016-10-10 06:07] LABS: CALCIUM, SERUM 8.9 MG/DL (8.5-10.4); GFR AFRICAN AMERICAN 47 ML/MIN (>=60); GFR NON AFRICAN AMERICAN 40 ML/MIN (>=60); POTASSIUM, SERUM 3.1 MMOL/L (3.5-5.3); SODIUM, SERUM 138 MMOL/L (135-148)
[2016-10-10 06:08] LABS: BUN (BLOOD UREA NITROGEN) 16 MG/DL (6-23); CHLORIDE, SERUM 97 MMOL/L (96-112); CO2 (CARBON DIOXIDE) 31 MMOL/L (24-34); GLUCOSE, SERUM 106 MG/DL (60-99)
== END 2016-10-12 16:26 | DRG 40 ==
LOC: ER 21:54 → 1SO 10-06 00:28
PROVIDERS: Emergency Medicine; Hospitalist; Internal Medicine; Nurse Practitioner Family; Student in an Organized Health Care Education/Training Program
PROC: 02HK3JZ Insertion of Pacemaker Lead into Right Ventricle, Percutaneous Approach (ICD-10-PCS; principal; 2016-10-11)
PROC: 0JH606Z Insertion of Pacemaker, Dual Chamber into Chest Subcutaneous Tissue and Fascia, Open Approach (ICD-10-PCS; 2016-10-11)
PROC: 02H63JZ Insertion of Pacemaker Lead into Right Atrium, Percutaneous Approach (ICD-10-PCS; 2016-10-11)
DX: I63.9 Cerebral infarction, unspecified (principal); G93.41 Metabolic encephalopathy; G81.94 Hemiplegia, unspecified affecting left nondominant side; N39.0 Urinary tract infection, site not specified; R44.3 Hallucinations, unspecified; I49.5 Sick sinus syndrome; F03.90 Unspecified dementia, unspecified severity, without behavioral disturbance, psychotic disturbance, mood disturbance, and anxiety; R47.1 Dysarthria and anarthria; R29.810 Facial weakness; I72.5 Aneurysm of other precerebral arteries; I10 Essential (primary) hypertension; Z66 Do not resuscitate; I73.9 Peripheral vascular disease, unspecified; I48.0 Paroxysmal atrial fibrillation; E78.5 Hyperlipidemia, unspecified; E87.6 Hypokalemia; J44.9 Chronic obstructive pulmonary disease, unspecified; H35.30 Unspecified macular degeneration; H54.41 Blindness, right eye, normal vision left eye; F17.210 Nicotine dependence, cigarettes, uncomplicated; Z79.82 Long term (current) use of aspirin; Z79.899 Other long term (current) drug therapy
CPT/HCPCS: 33208; 70450; 70544; 70547; 70551-52; 71010; 80048; 80053; 80061; 80076; 81001; 83036; 83735; 84132; 84443; 84484; 85025; 85610; 85730; 92507-GN; 92522-GN; 92610-GN; 93005; 93306; 97110-GP; 97162-GP; 97165-GO; 97530-GP; 99285; A9270-GY; C1785; C1892; C1898; G8978-CM-GP; G8979-CK-GP; G8987-CL-GO; G8988-CK-GO; G8996-CJ-GN; G8997-CJ-GN; G8998-CJ-GN; G8999-CK-GN; G9158-CK-GN; J0282; J0690; J1610; J1742; J2370; J2405; J3475; P9047

== ENCOUNTER 2016-10-18 18:04 | Inpatient (IN) | payer MEDICARE, OTHER ==
--- NOTE | ~2016-10-18 | DS ---
Discharge Summary [facility] [address] [place]. [address] NAME: LIVE CEBALLOS : [birth year] STATUS : DIS IN PAT#: [id number] AGE: 86 ADM/REG DATE : 10/18/16 MR#: [id number] REPORT SERV DATE: 10/29/16 DICTATED BY: KARLY TOBIN DATE: 10/28/16 REPORT STATUS : Draft TRANSCRIBED BY: MODL DATE: 10/28/16 ADMISSION DATE: 10/18/2016 DISCHARGE DATE: 10/28/2016 PROPELLANT ASSEMBLER: Dr. Tanner Patel, General Surgery. DISCHARGE DIAGNOSES: 1. Acute Clostridium difficile colitis, first episode. 2. Ileus associated with acute Clostridium difficile colitis. 3. Atrial fibrillation with sick sinus syndrome with recent pacemaker implantation for bradycardia and tachycardia, 10/11/2016. 4. 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 5. Senile dementia. 6. Peripheral arterial disease with previous repair of abdominal aortic aneurysm in 2006. 7. 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 8. Hypertension. 9. Previous wide-complex tachycardia, nonsustained ventricular tachycardia associated with hypokalemia and hypomagnesemia. HISTORY: This patient had been hospitalized here 10/06/2016 through 10/12/2016 for an acute right pontine stroke. She had atrial fibrillation with rapid ventricular response alternating with severe bradycardia necessitating a pacemaker placement on 10/11/2016. The patient had improved and was discharged on 10/12/2016 and had gone to rehab. At rehab, the patient developed abdominal pain, diarrhea, distention, came to the emergency room because of these symptoms. CT scan abdomen and pelvis in the emergency room showed evidence for small bowel obstruction with dilated loops of bowel, mild cardiomegaly, bibasilar atelectasis. Chest x-ray revealed the pacemaker and new elevation of the right hemidiaphragm with right basilar discoid atelectasis, otherwise unremarkable findings. The patient was seen by the surgery team for Dr. Patel. The patient was kept n.p.o. except ice chips and medications. She was placed on NG suction. She had parental fluids. We ordered a Gastrografin small bowel series, this was done on 10/20/2016 which showed distended loops of small bowel, but no obstruction. The material made it to the colon at 0700 hours. The patient had some diarrhea at this point in time and it was positive for C. diff. The patient was placed on oral vancomycin 125 mg q.6 hours plus Flagyl 500 mg IV every eight hours. Surgery agreed with discontinuing the NG tube. They felt she probably had ileus secondary to the C. difficile colitis. The patient had a gradual reduction of her abdominal pain, gradual reduction of her diarrhea, and was able to advance her diet. She does not eat very much anyway. She had her amiodarone taper down to 200 mg daily after she has had three weeks of loading doses. She has not had any rapid ventricular response while here. She has not had any bradycardia because of her pacemaker. The patient still has significant left-sided weakness of her arm and leg. She has passive Discharge Summary [address] [place]. [address] NAME: LIVE CEBALLOS : [birth year] STATUS : DIS IN PAT#: [id number] AGE: 86 ADM/REG DATE : 10/18/16 MR#: [id number] REPORT SERV DATE: 10/29/16 DICTATED BY: KARLY TOBIN DATE: 10/28/16 REPORT STATUS : Draft TRANSCRIBED BY: MODAntoni DATE: 10/28/16 stasis edema of the left upper extremity, mildly so in the left leg. LABORATORY STUDIES: Prior to discharge, her white count 7.3, hemoglobin 9.6, platelets 376,000. Her potassium 4.4, BUN 7, creatinine 0.45. 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 Villeda with [facility], had recommended against formal anticoagulation even though she has atrial fibrillation. This was based on the fact that she has a large basilar artery aneurysm) and her age), amiodarone 200 mg daily, Plavix 75 mg daily, Cardizem 30 mg q.8 hours hold if pulse less than 100, metoprolol 50 mg q.8 hours hold if systolic less than 100 or pulse less than 60, vancomycin 125 mg p.o. as the liquid four times a day through 11/02/2016, Tylenol 650 q.6 hours p.r.n. pain, Zantac 150 mg b.i.d. p.r.n. reflux, ondansetron ODT 4 mg q.4 hours p.r.n. nausea, Klonopin 0.25 mg at bedtime p.r.n. insomnia, vitamin B12 a 1000 mcg every 30 days. Very important in this patient to reduce her risk of recurrent C. diff to try to minimize or avoid antibiotic use. She has a history of asymptomatic bacteria, but we would not recommend antibiotic therapy for that because it is actually not an infection. We would also recommend to avoid proton pump inhibitors again to reduce the risk of recurrent C diff colitis. At the rehab she will need PT OT and speech therapy to help recover from her stroke. I spent 34 minutes today with the patient and with her daughter and with Case Management to nurse practitioner.. DARWIN/FADI Karly Tobin M.D. / [id number] CC: Annelise Ferrera Jr., M.D.
--- NOTE | ~2016-10-18 | CN ---
Consultation Report [facility] [address] [place]. [address] NAME: LIVE CEBALLOS : [birth year] STATUS : ADM IN [facility]#: [id number] AGE: 86 ADM/REG DATE : 10/18/16 MR#: [id number] REPORT SERV DATE: 10/21/16 DICTATED BY: TANNER PATEL DATE: 10/18/16 REPORT STATUS : Draft TRANSCRIBED BY: MODL DATE: 10/18/16 DATE OF CONSULTATION: 10/18/2016 REASON FOR CONSULT: Small-bowel obstruction. CHIEF COMPLAINT: Abdominal pain and distention associated with emesis. HISTORY OF PRESENT ILLNESS: This is an 86-year-old female, who recently suffered a stroke and was diagnosed with paroxysmal atrial fibrillation and sick sinus syndrome requiring dual chamber pacemaker placement, who was admitted to the emergency department with concerns for small-bowel obstruction. The patient was just discharged 5 days ago and has been at a group home facility where 3 days ago she was having a diarrhea illness and was treated with Imodium. She has not had a bowel movement since that time, and slowly over the last 2 days since treatment, has developed progressive abdominal distention associated with emesis today. She presented emergency department where CT scan showed dilated loops of small bowel with decompressed distal small bowel and stool and gas throughout the colon. She was diagnosed with small-bowel obstruction, General Surgery was consulted. She does have a history of AAA in the past requiring repair some years ago as well as a hysterectomy. She has never had a small-bowel obstruction before. Other than nausea and abdominal distention and fullness, she has no other complaints. She denies any fevers, chills, change in mental status, skin changes, or urinary habit changes or characteristics. She has not had a bowel movement in 2 days. Review of systems and history of present illness was reviewed and discussed with the patient's daughters who were at her side. REVIEW OF SYSTEMS: A 14-point review of systems was discussed and is otherwise negative except as per HPI and past medical history. PAST MEDICAL HISTORY: 1. Recent CVA. 2. Paroxysmal atrial fibrillation requiring pacemaker placement. 3. Peripheral artery disease. 4. Abdominal aortic aneurysm, status post repair. 5. Hypertension. 6. Dyslipidemia. 7. Dementia. MEDICATIONS: Per review of the recent discharge summary, the patient was discharged on the following medications: 1. Aspirin. 2. Lipitor. 3. Amiodarone. 4. Plavix. Consultation Report [place] [id number] [place]. [address] NAME: LIVE CEBALLOS : [birth year] STATUS : ADM IN PAT#: [id number] AGE: 86 ADM/REG DATE : 10/18/16 MR#: [id number] REPORT SERV DATE: 10/21/16 DICTATED BY: TANNER PATEL DATE: 10/18/16 REPORT STATUS : Draft TRANSCRIBED BY: FADI DATE: 10/18/16 5. Vitamin B12. 6. Caltrate. 7. Cardizem. 8. Metoprolol. 9. Seroquel. 10.Tylenol. 11.Amitiza. 12.MiraLAX. 13.Klonopin. 14.Crestor. 15.Artificial Tears. 16.Zantac. PAST SURGICAL HISTORY: 1. Abdominal aortic aneurysm and endovascular repair per review of chart. 2. Dual-chamber pacemaker placement on 10/11/2016. 3. Hysterectomy some 50 years ago. 4. Shoulder surgery. ALLERGIES: NONE KNOWN. SOCIAL HISTORY: The patient lives with her sister who is 92. Was an active smoker prior to recent admission for CVA. She denies alcohol. No illicit drug use. She has 3 daughters. She has been spending the last week in group home facility. FAMILY HISTORY: Noncontributory. PHYSICAL EXAMINATION: VITAL SIGNS: Temp 97.9, heart rate 104, respirations 21, blood pressure 107/56, and SpO2 of 97%. HEAD EYES, EARS, NOSE, AND THROAT: Sclerae are anicteric and extraocular muscles are grossly intact. Her speech is somewhat slurred. It is difficult to discern facial droop. Hearing is grossly normal. Oropharynx is pink but dry. There is no rhinorrhea. There is an NG tube in place. NECK: Examination of the neck reveals no cervical lymphadenopathy. No carotid bruit. CHEST: Respirations are nonlabored. LUNGS: Clear bilaterally. CARDIOVASCULAR: Tachycardia on exam, between 100 and 20. Cap refill time less than 2 seconds in the extremities. ABDOMEN: Soft but distended. She has mild tenderness to palpation. Deep palpation exam is limited due to patient discomfort. No obvious hernias are palpated. EXTREMITIES: Without deformity. PSYCHIATRIC: Patient is oriented to person but not time or place. She has appropriate mood and affect. NEUROLOGIC: Left-sided hemiparesis and slurred speech. Unable to assess gait. Consultation Report [place] [id number] [place]. [address] NAME: LIVE CEBALLOS : [birth year] STATUS : ADM IN PAT#: [id number] AGE: 86 ADM/REG DATE : 10/18/16 MR#: [id number] REPORT SERV DATE: 10/21/16 DICTATED BY: TANNER PATEL DATE: 10/18/16 REPORT STATUS : Draft TRANSCRIBED BY: MODL DATE: 10/18/16 LABORATORY STUDIES: Reviewed and are significant for sodium of 133, potassium of 3.4, chloride of 93 with a BUN of 27 and creatinine of 1.03. Calcium was low at 7.9. Bilirubin is 1.2 and transaminases and lipase are within normal limits. CBC shows normal white count of 10.3 and hemoglobin of 12.3. Platelets are also normal at 218. CT scan was reviewed which shows dilation of the majority of small-bowel loops with normal- appearing distal small bowel. It does appear to transition from larger-caliber bowel to normal-caliber bowel in the right hemipelvis. There is no evidence for perforation or free air. Though not mentioned in the report, the patient's colon has stool and gas throughout its entirety. ASSESSMENT AND PLAN: This is an 86-year-old female with bowel obstruction. Plan at this time is to admit to the Hospitalist Service given her recent comorbidities for medical management. Given the patient's recent cerebrovascular accident and admission to group home facility associated with recent diarrheal illness treated with anti-motility agents which greatly affect her small bowel, there is likely a multifactorial cause to her lack of bowel function. Given her age and high risk for surgery, a trial of nonsurgical management is certainly warranted. I agree with NG tube decompression and IV fluid administration. We will write for suppositories given the stool burden though it does not appear to be overwhelmingly large. This may in turn insight malfunction for the remainder of her GI tract. Would recommend exhausting medical management prior to pursuing surgical correction unless the patient's physical exam and condition should deteriorate as related to her bowel. We will continue to follow along. DICTATED BY: MD ANUSHKA Barahona/MODL Tanner Patel M.D. / [id number] CC: Annelise Mason Jr., M.D.
--- NOTE | ~2016-10-18 | HP ---
History And Physical [place] [id number] [facility] [place]. [address] NAME: LIVE CEBALLOS : [birth year] STATUS : ADM IN [facility]#: [id number] AGE: 86 ADM/REG DATE : 10/18/16 MR#: [id number] REPORT SERV DATE: 10/19/16 DICTATED BY: RICK GRIFFIN DATE: 10/18/16 REPORT STATUS : Draft TRANSCRIBED BY: FADI DATE: 10/18/16 DATE OF ADMISSION: 10/18/2016 CHIEF COMPLAINT: Abdominal pain. HISTORY OF PRESENT ILLNESS: This is an 86-year-old female, recently discharged from the hospital on 10/14/2016. Please see Dr. 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 She was seen by Neurology, Dr. Vera. The patient was placed on aspirin and Plavix, also seen by [facility] cardiology team with Dr. Villeda, Dr. Patel for atrial fibrillation with RVR. The patient was discharged to [facility]. However, according to the family, the patient had decreased oral intake, had some nausea and vomiting and is only wanting to take liquids. She started to complain of abdominal discomfort approximately two days ago, and the family reported the patient had an abdominal x-ray while at [facility] and was informed to come to the ER. Also, according to the family, the patient initially had diarrhea three days ago and has not had a bowel movement in three days. The patient is still with complaints of abdominal discomfort. Upon arrival to the ER, the patient was in atrial fibrillation with RVR, seen by ER physician, Dr. De La Vega, heart rate ranging in the 150s. She was placed on Cardizem drip. She had a CT of the abdomen and pelvis with findings of a high-grade small bowel obstruction with no signs of perforation. Dr. Patel, General Surgery, was on-call and also called by ER physician and notified of a small bowel obstruction. They will come and evaluate the patient but recommended for the patient to be admitted to the Hospitalist Service. REVIEW OF SYSTEMS: The patient denies any subjective fever or chills. No chest pain. No shortness of breath. Positive abdominal pain. Positive nausea and vomiting. Decreased oral intake. Please refer to HPI for further details. 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 PAST SURGICAL HISTORY: Hysterectomy and pacemaker and please see above. FAMILY HISTORY: Coronary artery disease. SOCIAL HISTORY: History of tobacco abuse. No alcohol or illicit drugs. Currently at [facility] for rehab. ALLERGIES: NO KNOWN ALLERGIES REPORTED. CURRENT MEDICATIONS: Please see MAR per Pharmacy. PHYSICAL EXAMINATION: History And Physical [address] [address] NAME: LIVE CEBALLOS : [birth year] STATUS : ADM IN [facility]#: [id number] AGE: 86 ADM/REG DATE : 10/18/16 MR#: [id number] REPORT SERV DATE: 10/19/16 DICTATED BY: RICK GRIFFIN DATE: 10/18/16 REPORT STATUS : Draft TRANSCRIBED BY: FADI DATE: 10/18/16 VITAL SIGNS: Temp of 97.9; blood pressure 126/84; initial pulse of 152, now averaging 115- 140; saturating 93-97% currently on room air. GENERAL: The patient is alert, oriented to self, however, hard to ascertain complete orientation due to the patient's current status and occasionally mumbling answers but does follow commands. HEENT EXAM: Pupils equal, round, and reactive to light. Extraocular muscles are intact. Dry mucous membranes. CARDIOVASCULAR: S1, S2. Irregularly irregular. Positive tachycardia. No appreciated JVD. RESPIRATORY: Clear to auscultation bilaterally. No wheezes or crackles. No signs of tachypnea. ABDOMEN: Quiet bowel sounds with positive abdominal distention and some tenderness to palpation, generalized more so in the lower quadrants but no rebound. EXTREMITIES: 2+ pulses bilaterally. No edema. NEURO: Cranial nerves II through XII grossly intact with 4/5 right upper extremity strength and right lower extremity strength, 2/5 left upper extremity strength and 2 to 3/5 left lower extremity strength. IMAGING: CT of the abdomen and pelvis without contrast showing some gallbladder distention and some gallstones area, normal pancreas, normal kidneys, and a high-grade small bowel obstruction with no association of perforation and some bibasilar atelectasis. LABORATORY DATA: Sodium 133, potassium 3.4 with a chloride of 93, bicarb of 27, BUN of 27, creatinine of 1.03, glucose of 137, calcium of 7.9, albumin of 2.0, T-bilirubin of 1.2, alkaline phosphatase 82, ALT of 9, AST of 16, lipase of 65. White cell count of 10.3 with a hemoglobin of 12.3, platelet count of 218. INR pending. UA: Specific gravity of 1.025, 100 of protein, small amount of blood, negative leukocyte esterase, positive nitrites, 5 white blood cells. EKG with atrial fibrillation with RVR. Ventricular rate of 115. No appreciated ST elevation. ASSESSMENT AND PLAN: 1. High-grade small bowel obstruction, acute. 2. Atrial fibrillation with RVR. 3. Recent cerebrovascular accident. 4. Hypertension. 5. DNR/DNI. 6. NG tube, which is to be placed in the ER to suction. Also, the patient to be seen by General Surgery, Dr. Patel. Family has been informed that the patient is high risk for any surgical intervention especially due to a recent CVA and other comorbidities, they understand. Also, they confirmed that the patient is DNR/DNI per the patient's wishes. Also, this was confirmed by the patient's power of white sidewall tire buffer, Destiny, who was one of the daughters. We will continue with IV Cardizem drip for heart rate control and IV medication and remain n.p.o. The patient will be admitted to one of my colleagues, who will attend to Ms. Ceballos's care. History And Physical [address] [place]. [address] NAME: LIVE CEBALLOS : [birth year] STATUS : ADM IN [facility]#: [id number] AGE: 86 ADM/REG DATE : 10/18/16 MR#: [id number] REPORT SERV DATE: 10/19/16 DICTATED BY: RICK GRIFFIN DATE: 10/18/16 REPORT STATUS : Draft TRANSCRIBED BY: FADI DATE: 10/18/16 [facility]/FADI Rick Griffin M.D. / [id number] CC: Annelise Mason Jr., M.D.
[2016-10-18 16:05] LABS: BASOPHILS 0.2 %; BASOPHILS ABSOLUTE 0.02 10/3/uL (0.0-0.16); EOSINOPHILS 0.6 %; EOSINOPHILS ABSOLUTE 0.06 10/3/uL (0.0-0.53); HEMOGLOBIN 12.3 g/dL (12.0-16.0); IMMATURE GRANULOCYTES 1.1 %; IMMATURE GRANULOCYTES ABSOLUTE 0.11 10/3/uL (0.0-0.11); LYMPHOCYTES 7.4 %; LYMPHOCYTES ABSOLUTE 0.76 10/3/uL (0.67-4.30); MEAN CORPUSCULAR HEMOGLOB 31.1 pg (26.0-34.0); MEAN PLATELET VOLUME 11.7 fL (9.2-13.0); MONOCYTES ABSOLUTE 1.44 10/3/uL (0.21-1.20); NEUTROPHILS 76.7 %; NEUTROPHILS ABSOLUTE 7.87 10/3/uL (2.02-8.40); PLATELET COUNT 218 10/3/uL (150-400); RBC DISTRIBUTION WIDTH 13.6 % (12.0-16.0); RED CELL COUNT 3.95 10/6/uL (4.0-5.6); WHITE BLOOD CELLS 10.3 10/3/uL (4.5-10.5)
[2016-10-18 16:10] LABS: HEMATOCRIT 34.9 % (36.0-48.0); MANUAL DIFF NO %; MEAN CORPUS HGB CONC 35.2 g/dL (32.0-36.0); MEAN CORPUSCULAR VOLUME 88.4 fL (80-100)
[2016-10-18 16:34] LABS: BAND NEUTROPHILS 35 %; ER DIFF TAT 0 Hrs 33 Mins; LYMPHOCYTES 11 %; LYMPHOCYTES ABSOLUTE (CALC) 1.13 10/3/uL (0.67-4.30); METAMYELOCYTES 1 %; MONOCYTES 6 %; MONOCYTES ABSOLUTE (CALC) 0.62 10/3/uL (0.21-1.20); NEUTROPHILS ABSOLUTE (CALC) 8.45 10/3/uL (2.02-8.40); PLATELET ESTIMATE ADQ (ADEQUATE); RBC MORPHOLOGY NORM (NORMAL); SEGMENTED NEUTROPHIL (0) 47 %; TOTAL NUCLEATED CELLS 100; TOXIC GRANULATION 2+
[2016-10-18 16:38] LABS: ASCORBIC ACID (UR NOT ORDER) NEG (NEG); BILIRUBIN, URINE NEGATIVE (NEG); ER URINALYSIS TAT 0 Hrs 07 Mins; KETONE, URINE TRACE MG/DL (NEG); LEUKOCYTE ESTERASE(NOT OR NEG (NEG); WBC (NOT ORDERED) (RFLEX) 5 (0-5)
[2016-10-18 16:41] LABS: NITRITE (URINE) POS (NEG)
[2016-10-18 17:06] LABS: CHLORIDE, SERUM 93 MMOL/L (96-112); CO2 (CARBON DIOXIDE) 27 MMOL/L (24-34); CREATININE 1.03 MG/DL (0.55-1.02); GFR AFRICAN AMERICAN 56 ML/MIN (>=60); GFR NON AFRICAN AMERICAN 48 ML/MIN (>=60); SGOT(AST) 16 U/L (5-40); SGPT(ALT) 9 U/L (5-65); SODIUM, SERUM 133 MMOL/L (135-148); TOTAL PROTEIN 6.1 G/DL (6.0-8.5)
[2016-10-18 17:07] LABS: A/G RATIO 0.5 (0.7-1.9); ALKALINE PHOSPHATASE 82 U/L (45-117); BUN (BLOOD UREA NITROGEN) 27 MG/DL (6-23); CALCIUM, SERUM 7.9 MG/DL (8.5-10.4); GLOBULIN 4.1 G/DL (2.5-4.1); GLUCOSE, SERUM 137 MG/DL (60-99); POTASSIUM, SERUM 3.4 MMOL/L (3.5-5.3); TOTAL BILIRUBIN 1.2 MG/DL (0-1.2)
[~2016-10-18 18:04] MED LIST changes: +AMITIZA8 MCG PO; +ASAB PO; +B121000P IM; +BION TEARS OPH; +CALTRA600D PO; +KLONO5 PO; +MCZ125 PO; +POT GLUCONAT2.5 MEQ PO
[2016-10-18] MEDS ORDERED: PLAVIX PO (22:11)
[2016-10-18] MEDS ORDERED: ASAB PO (22:11)
[2016-10-18] MEDS ORDERED: CIP5 PO (22:11)
[2016-10-18] MEDS ORDERED: CARD30 PO (22:12)
[2016-10-18] MEDS ORDERED: CORDARONE PO (22:12)
[2016-10-18] MEDS ORDERED: B121000P IM (22:12)
[2016-10-18] MEDS ORDERED: CALTRA600D PO (22:12)
[2016-10-18] MEDS ORDERED: KLONO5 PO (22:13)
[2016-10-18] MEDS ORDERED: MIRALAX POWDER1 PKT PO (22:13)
[2016-10-18] MEDS ORDERED: T PO (22:13)
[2016-10-18] MEDS ORDERED: LOP50 PO (22:13)
[2016-10-18] MEDS ORDERED: AMITIZA8 MCG PO (22:14)
[2016-10-18] MEDS ORDERED: ZANTAC 150 PO (22:14)
[2016-10-19 00:44] LABS: HEMATOCRIT 32.5 % (36.0-48.0); HEMOGLOBIN 11.3 g/dL (12.0-16.0); MEAN CORPUS HGB CONC 34.8 g/dL (32.0-36.0); MEAN CORPUSCULAR HEMOGLOB 30.7 pg (26.0-34.0); MEAN CORPUSCULAR VOLUME 88.3 fL (80-100); PLATELET COUNT 200 10/3/uL (150-400); RBC DISTRIBUTION WIDTH 13.5 % (12.0-16.0); RED CELL COUNT 3.68 10/6/uL (4.0-5.6); WHITE BLOOD CELLS 9.4 10/3/uL (4.5-10.5)
[2016-10-19 00:45] LABS: MANUAL DIFF YES %
[2016-10-19 00:51] LABS: INTERNATIONAL NORMAL RATI 1.5 UNITS (-)
[2016-10-19 00:52] LABS: PARTIAL THROMBO TIME 36.6 SEC (22.5-37.2)
[2016-10-19 00:53] LABS: PROTIME (NOT ORD) 17.7 SEC (12.0-14.5)
[2016-10-19 00:55] LABS: A/G RATIO 0.5 (0.7-1.9); ALKALINE PHOSPHATASE 82 U/L (45-117); BUN (BLOOD UREA NITROGEN) 26 MG/DL (6-23); CALCIUM, SERUM 7.7 MG/DL (8.5-10.4); CHLORIDE, SERUM 97 MMOL/L (96-112); CO2 (CARBON DIOXIDE) 25 MMOL/L (24-34); GFR AFRICAN AMERICAN 66 ML/MIN (>=60); GFR NON AFRICAN AMERICAN 57 ML/MIN (>=60); GLOBULIN 4.1 G/DL (2.5-4.1); GLUCOSE, SERUM 126 MG/DL (60-99); POTASSIUM, SERUM 3.4 MMOL/L (3.5-5.3); SGOT(AST) 18 U/L (5-40); SGPT(ALT) 7 U/L (5-65); SODIUM, SERUM 134 MMOL/L (135-148); TOTAL BILIRUBIN 0.9 MG/DL (0-1.2); TOTAL PROTEIN 6.1 G/DL (6.0-8.5)
[2016-10-19 01:03] LABS: BAND NEUTROPHILS 23 %; EOSINOPHILS 5 %; EOSINOPHILS ABSOLUTE (CALC) 0.47 10/3/uL (0.0-0.53); LYMPHOCYTES 16 %; MONOCYTES 11 %; MONOCYTES ABSOLUTE (CALC) 1.03 10/3/uL (0.21-1.20); NEUTROPHILS ABSOLUTE (CALC) 6.39 10/3/uL (2.02-8.40); SEGMENTED NEUTROPHIL (0) 45 %; TOTAL NUCLEATED CELLS 100
[2016-10-19 01:04] LABS: PLATELET ESTIMATE ADQ (ADEQUATE); RBC MORPHOLOGY NORM (NORMAL)
[2016-10-20 06:46] LABS: HEMATOCRIT 30.3 % (36.0-48.0); HEMOGLOBIN 10.5 g/dL (12.0-16.0); MEAN CORPUS HGB CONC 34.7 g/dL (32.0-36.0); MEAN CORPUSCULAR HEMOGLOB 30.7 pg (26.0-34.0); MEAN CORPUSCULAR VOLUME 88.6 fL (80-100); MEAN PLATELET VOLUME 10.3 fL (9.2-13.0); PLATELET COUNT 221 10/3/uL (150-400); RBC DISTRIBUTION WIDTH 13.8 % (12.0-16.0); RED CELL COUNT 3.42 10/6/uL (4.0-5.6); WHITE BLOOD CELLS 6.9 10/3/uL (4.5-10.5)
[2016-10-20 06:47] LABS: MANUAL DIFF YES %
[2016-10-20 07:01] LABS: BUN (BLOOD UREA NITROGEN) 19 MG/DL (6-23); CALCIUM, SERUM 7.7 MG/DL (8.5-10.4); CHLORIDE, SERUM 97 MMOL/L (96-112); CO2 (CARBON DIOXIDE) 23 MMOL/L (24-34); CREATININE 0.79 MG/DL (0.55-1.02); GFR AFRICAN AMERICAN 77 ML/MIN (>=60); GFR NON AFRICAN AMERICAN 67 ML/MIN (>=60); GLUCOSE, SERUM 122 MG/DL (60-99); POTASSIUM, SERUM 3.6 MMOL/L (3.5-5.3); SODIUM, SERUM 132 MMOL/L (135-148)
[2016-10-20 07:51] LABS: BAND NEUTROPHILS 29 %; BASOPHILS 1 %; BASOPHILS ABSOLUTE (CALC) 0.07 10/3/uL (0.0-0.16); EOSINOPHILS 2 %; EOSINOPHILS ABSOLUTE (CALC) 0.14 10/3/uL (0.0-0.53); IMMATURE GRANS ABSOLUTE (CALC) 0.07 10/3/uL (0.0-0.11); LYMPHOCYTES 14 %; LYMPHOCYTES ABSOLUTE (CALC) 0.97 10/3/uL (0.67-4.30); METAMYELOCYTES 1 %; MONOCYTES 9 %; MONOCYTES ABSOLUTE (CALC) 0.62 10/3/uL (0.21-1.20); NEUTROPHILS ABSOLUTE (CALC) 5.04 10/3/uL (2.02-8.40); PLATELET ESTIMATE ADQ (ADEQUATE); RBC MORPHOLOGY NORM (NORMAL); SEGMENTED NEUTROPHIL (0) 44 %; TOTAL NUCLEATED CELLS 100
[2016-10-21 07:18] LABS: HEMATOCRIT 28.6 % (36.0-48.0); MEAN CORPUSCULAR HEMOGLOB 30.8 pg (26.0-34.0); MEAN PLATELET VOLUME 9.9 fL (9.2-13.0); PLATELET COUNT 255 10/3/uL (150-400); RBC DISTRIBUTION WIDTH 13.9 % (12.0-16.0); RED CELL COUNT 3.25 10/6/uL (4.0-5.6); WHITE BLOOD CELLS 6.6 10/3/uL (4.5-10.5)
[2016-10-21 07:19] LABS: MANUAL DIFF YES %
[2016-10-21 07:29] LABS: CHLORIDE, SERUM 102 MMOL/L (96-112); CO2 (CARBON DIOXIDE) 25 MMOL/L (24-34); CREATININE 0.74 MG/DL (0.55-1.02); GFR AFRICAN AMERICAN 84 ML/MIN (>=60); GFR NON AFRICAN AMERICAN 72 ML/MIN (>=60); GLUCOSE, SERUM 121 MG/DL (60-99); SODIUM, SERUM 137 MMOL/L (135-148)
[2016-10-21 07:31] LABS: BUN (BLOOD UREA NITROGEN) 15 MG/DL (6-23); POTASSIUM, SERUM 2.8 MMOL/L (3.5-5.3)
[2016-10-21 07:54] LABS: BAND NEUTROPHILS 4 %; EOSINOPHILS 1 %; EOSINOPHILS ABSOLUTE (CALC) 0.07 10/3/uL (0.0-0.53); LYMPHOCYTES 22 %; LYMPHOCYTES ABSOLUTE (CALC) 1.45 10/3/uL (0.67-4.30); MONOCYTES 10 %; MONOCYTES ABSOLUTE (CALC) 0.66 10/3/uL (0.21-1.20); NEUTROPHILS ABSOLUTE (CALC) 4.42 10/3/uL (2.02-8.40); PLATELET ESTIMATE ADQ (ADEQUATE); RBC MORPHOLOGY NORM (NORMAL); SEGMENTED NEUTROPHIL (0) 63 %; TOTAL NUCLEATED CELLS 100
[2016-10-22 05:58] LABS: HEMATOCRIT 27.7 % (36.0-48.0); HEMOGLOBIN 9.7 g/dL (12.0-16.0); MEAN CORPUSCULAR HEMOGLOB 31.3 pg (26.0-34.0); MEAN CORPUSCULAR VOLUME 89.4 fL (80-100); MEAN PLATELET VOLUME 10.2 fL (9.2-13.0); PLATELET COUNT 273 10/3/uL (150-400); WHITE BLOOD CELLS 8.4 10/3/uL (4.5-10.5)
[2016-10-22 05:59] LABS: MANUAL DIFF YES %
[2016-10-22 06:14] LABS: CHLORIDE, SERUM 100 MMOL/L (96-112); CO2 (CARBON DIOXIDE) 25 MMOL/L (24-34); CREATININE 0.68 MG/DL (0.55-1.02); GFR AFRICAN AMERICAN 91 ML/MIN (>=60); GFR NON AFRICAN AMERICAN 78 ML/MIN (>=60); GLUCOSE, SERUM 103 MG/DL (60-99); POTASSIUM, SERUM 3.3 MMOL/L (3.5-5.3); SODIUM, SERUM 137 MMOL/L (135-148)
[2016-10-22 06:15] LABS: BUN (BLOOD UREA NITROGEN) 11 MG/DL (6-23)
[2016-10-22 06:21] LABS: BAND NEUTROPHILS 41 %; BASOPHILS 1 %; BASOPHILS ABSOLUTE (CALC) 0.08 10/3/uL (0.0-0.16); EOSINOPHILS 1 %; EOSINOPHILS ABSOLUTE (CALC) 0.08 10/3/uL (0.0-0.53); LYMPHOCYTES 18 %; LYMPHOCYTES ABSOLUTE (CALC) 1.51 10/3/uL (0.67-4.30); MONOCYTES 5 %; MONOCYTES ABSOLUTE (CALC) 0.42 10/3/uL (0.21-1.20); PLATELET ESTIMATE ADQ (ADEQUATE); SEGMENTED NEUTROPHIL (0) 34 %; TOTAL NUCLEATED CELLS 100
[2016-10-22 06:22] LABS: POLYCHROMASIA 1+ (2-5/OIF) (0-1/OIF); TOXIC GRANULATION 2+
[2016-10-23 05:29] LABS: HEMATOCRIT 28.7 % (36.0-48.0); HEMOGLOBIN 9.9 g/dL (12.0-16.0); MEAN CORPUS HGB CONC 34.5 g/dL (32.0-36.0); MEAN CORPUSCULAR HEMOGLOB 31.1 pg (26.0-34.0); MEAN CORPUSCULAR VOLUME 90.3 fL (80-100); MEAN PLATELET VOLUME 10.1 fL (9.2-13.0); PLATELET COUNT 314 10/3/uL (150-400); RBC DISTRIBUTION WIDTH 14.1 % (12.0-16.0); RED CELL COUNT 3.18 10/6/uL (4.0-5.6); WHITE BLOOD CELLS 6.3 10/3/uL (4.5-10.5)
[2016-10-23 05:37] LABS: MANUAL DIFF YES %
[2016-10-23 05:39] LABS: BUN (BLOOD UREA NITROGEN) 8 MG/DL (6-23); CALCIUM, SERUM 8.5 MG/DL (8.5-10.4); CHLORIDE, SERUM 100 MMOL/L (96-112); CO2 (CARBON DIOXIDE) 26 MMOL/L (24-34); CREATININE 0.58 MG/DL (0.55-1.02); GFR AFRICAN AMERICAN 95 ML/MIN (>=60); GFR NON AFRICAN AMERICAN 82 ML/MIN (>=60); GLUCOSE, SERUM 97 MG/DL (60-99); POTASSIUM, SERUM 3.3 MMOL/L (3.5-5.3); SODIUM, SERUM 136 MMOL/L (135-148)
[2016-10-23 06:38] LABS: BAND NEUTROPHILS 26 %; EOSINOPHILS 3 %; EOSINOPHILS ABSOLUTE (CALC) 0.19 10/3/uL (0.0-0.53); IMMATURE GRANS ABSOLUTE (CALC) 0.06 10/3/uL (0.0-0.11); LYMPHOCYTES 26 %; LYMPHOCYTES ABSOLUTE (CALC) 1.64 10/3/uL (0.67-4.30); METAMYELOCYTES 1 %; MONOCYTES 10 %; MONOCYTES ABSOLUTE (CALC) 0.63 10/3/uL (0.21-1.20); NEUTROPHILS ABSOLUTE (CALC) 3.78 10/3/uL (2.02-8.40); SEGMENTED NEUTROPHIL (0) 34 %; TOTAL NUCLEATED CELLS 100
[2016-10-23 06:39] LABS: PLATELET ESTIMATE ADQ (ADEQUATE); RBC MORPHOLOGY NORM (NORMAL)
[2016-10-24 05:23] LABS: BUN (BLOOD UREA NITROGEN) 7 MG/DL (6-23); CALCIUM, SERUM 8.5 MG/DL (8.5-10.4); CHLORIDE, SERUM 100 MMOL/L (96-112); CO2 (CARBON DIOXIDE) 27 MMOL/L (24-34); CREATININE 0.56 MG/DL (0.55-1.02); GFR AFRICAN AMERICAN 96 ML/MIN (>=60); GFR NON AFRICAN AMERICAN 83 ML/MIN (>=60); GLUCOSE, SERUM 94 MG/DL (60-99); SODIUM, SERUM 137 MMOL/L (135-148)
[2016-10-24 05:26] LABS: BASOPHILS 0.5 %; BASOPHILS ABSOLUTE 0.03 10/3/uL (0.0-0.16); EOSINOPHILS 1.2 %; EOSINOPHILS ABSOLUTE 0.07 10/3/uL (0.0-0.53); HEMATOCRIT 28.4 % (36.0-48.0); HEMOGLOBIN 9.6 g/dL (12.0-16.0); IMMATURE GRANULOCYTES 1.3 %; IMMATURE GRANULOCYTES ABSOLUTE 0.08 10/3/uL (0.0-0.11); LYMPHOCYTES 22.7 %; LYMPHOCYTES ABSOLUTE 1.38 10/3/uL (0.67-4.30); MEAN CORPUS HGB CONC 33.8 g/dL (32.0-36.0); MEAN CORPUSCULAR HEMOGLOB 30.8 pg (26.0-34.0); MEAN PLATELET VOLUME 10.2 fL (9.2-13.0); MONOCYTES 14.3 %; MONOCYTES ABSOLUTE 0.87 10/3/uL (0.21-1.20); NEUTROPHILS ABSOLUTE 3.64 10/3/uL (2.02-8.40); PLATELET COUNT 338 10/3/uL (150-400); RBC DISTRIBUTION WIDTH 14.4 % (12.0-16.0); RED CELL COUNT 3.12 10/6/uL (4.0-5.6); WHITE BLOOD CELLS 6.1 10/3/uL (4.5-10.5)
[2016-10-24 05:28] LABS: MANUAL DIFF NO %
[2016-10-25 07:29] LABS: BUN (BLOOD UREA NITROGEN) 6 MG/DL (6-23); CHLORIDE, SERUM 99 MMOL/L (96-112); CO2 (CARBON DIOXIDE) 26 MMOL/L (24-34); CREATININE 0.56 MG/DL (0.55-1.02); GFR AFRICAN AMERICAN 96 ML/MIN (>=60); GFR NON AFRICAN AMERICAN 83 ML/MIN (>=60); GLUCOSE, SERUM 103 MG/DL (60-99); SODIUM, SERUM 134 MMOL/L (135-148)
[2016-10-25 08:39] LABS: HEMATOCRIT 30.7 % (36.0-48.0); HEMOGLOBIN 10.4 g/dL (12.0-16.0); MEAN CORPUS HGB CONC 33.9 g/dL (32.0-36.0); MEAN CORPUSCULAR HEMOGLOB 30.4 pg (26.0-34.0); MEAN CORPUSCULAR VOLUME 89.8 fL (80-100); MEAN PLATELET VOLUME 10.2 fL (9.2-13.0); PLATELET COUNT 365 10/3/uL (150-400); RBC DISTRIBUTION WIDTH 14.3 % (12.0-16.0); RED CELL COUNT 3.42 10/6/uL (4.0-5.6); WHITE BLOOD CELLS 7.9 10/3/uL (4.5-10.5)
[2016-10-25 08:40] LABS: MANUAL DIFF YES %
[2016-10-25 09:12] LABS: BAND NEUTROPHILS 12 %; LYMPHOCYTES 30 %; LYMPHOCYTES ABSOLUTE (CALC) 2.37 10/3/uL (0.67-4.30); MONOCYTES 7 %; MONOCYTES ABSOLUTE (CALC) 0.55 10/3/uL (0.21-1.20); NEUTROPHILS ABSOLUTE (CALC) 4.98 10/3/uL (2.02-8.40); PLATELET ESTIMATE ADQ (ADEQUATE); RBC MORPHOLOGY NORM (NORMAL); SEGMENTED NEUTROPHIL (0) 51 %; TOTAL NUCLEATED CELLS 100
[2016-10-27 07:37] LABS: BASOPHILS 0.4 %; BASOPHILS ABSOLUTE 0.03 10/3/uL (0.0-0.16); EOSINOPHILS ABSOLUTE 0.07 10/3/uL (0.0-0.53); HEMATOCRIT 28.7 % (36.0-48.0); HEMOGLOBIN 9.6 g/dL (12.0-16.0); IMMATURE GRANULOCYTES 0.8 %; IMMATURE GRANULOCYTES ABSOLUTE 0.06 10/3/uL (0.0-0.11); LYMPHOCYTES 17.9 %; LYMPHOCYTES ABSOLUTE 1.31 10/3/uL (0.67-4.30); MEAN CORPUS HGB CONC 33.4 g/dL (32.0-36.0); MEAN CORPUSCULAR HEMOGLOB 31.1 pg (26.0-34.0); MEAN PLATELET VOLUME 9.8 fL (9.2-13.0); MONOCYTES 14.5 %; MONOCYTES ABSOLUTE 1.06 10/3/uL (0.21-1.20); NEUTROPHILS 65.4 %; NEUTROPHILS ABSOLUTE 4.78 10/3/uL (2.02-8.40); PLATELET COUNT 376 10/3/uL (150-400); RBC DISTRIBUTION WIDTH 15.2 % (12.0-16.0); RED CELL COUNT 3.09 10/6/uL (4.0-5.6); WHITE BLOOD CELLS 7.3 10/3/uL (4.5-10.5)
[2016-10-27 07:38] LABS: MANUAL DIFF NO %; MEAN CORPUSCULAR VOLUME 92.9 fL (80-100)
[2016-10-27 07:46] LABS: BUN (BLOOD UREA NITROGEN) 7 MG/DL (6-23); CALCIUM, SERUM 7.7 MG/DL (8.5-10.4); CHLORIDE, SERUM 103 MMOL/L (96-112); CO2 (CARBON DIOXIDE) 28 MMOL/L (24-34); CREATININE 0.45 MG/DL (0.55-1.02); GFR AFRICAN AMERICAN 104 ML/MIN (>=60); GFR NON AFRICAN AMERICAN 89 ML/MIN (>=60); GLUCOSE, SERUM 88 MG/DL (60-99); POTASSIUM, SERUM 4.4 MMOL/L (3.5-5.3); SODIUM, SERUM 138 MMOL/L (135-148)
== END 2016-10-28 13:40 | DRG 372 ==
LOC: ER 18:04 → 1SO 21:50
PROVIDERS: Emergency Medicine; Hospitalist; Internal Medicine
DX: A04.7 Enterocolitis due to Clostridium difficile (principal); K56.0 Paralytic ileus; K56.60 Unspecified intestinal obstruction; I69.354 Hemiplegia and hemiparesis following cerebral infarction affecting left non-dominant side; J98.11 Atelectasis; I67.1 Cerebral aneurysm, nonruptured; I49.5 Sick sinus syndrome; F03.90 Unspecified dementia, unspecified severity, without behavioral disturbance, psychotic disturbance, mood disturbance, and anxiety; I48.0 Paroxysmal atrial fibrillation; I10 Essential (primary) hypertension; E83.42 Hypomagnesemia; I73.9 Peripheral vascular disease, unspecified; E87.6 Hypokalemia; Z66 Do not resuscitate; H54.41 Blindness, right eye, normal vision left eye; E78.5 Hyperlipidemia, unspecified; H35.30 Unspecified macular degeneration; Z87.891 Personal history of nicotine dependence; Z79.02 Long term (current) use of antithrombotics/antiplatelets; Z79.82 Long term (current) use of aspirin; Z79.899 Other long term (current) drug therapy; Z95.0 Presence of cardiac pacemaker
CPT/HCPCS: 71010; 74000; 74020; 74176; 74250; 80048; 80053; 81001; 82962; 83690; 83735; 84132; 85025; 85610; 85730; 87493; 87493-59; 93005; 96374; 96376; 99285; A9270-GY; C9113; J3480

== ENCOUNTER 2016-12-06 12:02 | Emergency (ER) | payer MEDICARE, OTHER ==
[~2016-12-06 12:02] MED LIST changes: +CARD30 PO; +CIP5 PO; +CORDARONE PO; +MIRALAX POWDER1 PKT PO; +PLAVIX PO; +T PO; +ZANTAC 150 PO
[2016-12-06 13:12] LABS: ASCORBIC ACID (UR NOT ORDER) NEG (NEG); BILIRUBIN, URINE NEGATIVE (NEG); ER URINALYSIS TAT 0 Hrs 22 Mins; KETONE, URINE NEGATIVE (NEG); NITRITE (URINE) POS (NEG); WBC (NOT ORDERED) (RFLEX) 10 (0-5)
[2016-12-06 13:20] LABS: BASOPHILS 0.8 %; BASOPHILS ABSOLUTE 0.06 10/3/uL (0.0-0.16); EOSINOPHILS 1.9 %; EOSINOPHILS ABSOLUTE 0.15 10/3/uL (0.0-0.53); ER CBC TAT 0 Hrs 10 Mins; IMMATURE GRANULOCYTES 0.3 %; IMMATURE GRANULOCYTES ABSOLUTE 0.02 10/3/uL (0.0-0.11); LYMPHOCYTES ABSOLUTE 3.46 10/3/uL (0.67-4.30); MEAN CORPUS HGB CONC 32.8 g/dL (32.0-36.0); MEAN CORPUSCULAR HEMOGLOB 30.7 pg (26.0-34.0); MEAN CORPUSCULAR VOLUME 93.6 fL (80-100); MEAN PLATELET VOLUME 10.9 fL (9.2-13.0); MONOCYTES 9.7 %; MONOCYTES ABSOLUTE 0.76 10/3/uL (0.21-1.20); NEUTROPHILS 43.3 %; NEUTROPHILS ABSOLUTE 3.41 10/3/uL (2.02-8.40); PLATELET COUNT 272 10/3/uL (150-400); WHITE BLOOD CELLS 7.9 10/3/uL (4.5-10.5)
[2016-12-06 13:21] LABS: HEMATOCRIT 37.8 % (36.0-48.0); HEMOGLOBIN 12.4 g/dL (12.0-16.0); MANUAL DIFF NO %; RED CELL COUNT 4.04 10/6/uL (4.0-5.6)
[2016-12-06 13:22] LABS: LEUKOCYTE ESTERASE(NOT OR TRACE (NEG)
[2016-12-06 13:24] LABS: INTERNATIONAL NORMAL RATI 1.2 UNITS (-); PARTIAL THROMBO TIME 27.2 SEC (22.5-37.2); PROTIME (NOT ORD) 14.6 SEC (12.0-14.5)
[2016-12-06 13:32] LABS: BUN (BLOOD UREA NITROGEN) 14 MG/DL (6-23); CALCIUM, SERUM 8.9 MG/DL (8.5-10.4); CHEST PAIN PROFILE TAT 0 Hrs 22 Mins; CHLORIDE, SERUM 105 MMOL/L (96-112); CO2 (CARBON DIOXIDE) 32 MMOL/L (24-34); GFR AFRICAN AMERICAN 90 ML/MIN (>=60); GFR NON AFRICAN AMERICAN 77 ML/MIN (>=60); GLUCOSE, SERUM 94 MG/DL (60-99); POTASSIUM, SERUM 3.1 MMOL/L (3.5-5.3); SODIUM, SERUM 141 MMOL/L (135-148); TROPONIN I <0.02 NG/ML (<0.05)
== END 2016-12-06 17:16 | disposition home or self-care (01) ==
LOC: ER 12:02
PROVIDERS: Emergency Medicine
DX: I48.91 Unspecified atrial fibrillation (principal); I10 Essential (primary) hypertension; F03.90 Unspecified dementia, unspecified severity, without behavioral disturbance, psychotic disturbance, mood disturbance, and anxiety; I73.9 Peripheral vascular disease, unspecified; Z95.0 Presence of cardiac pacemaker; Z86.73 Personal history of transient ischemic attack (TIA), and cerebral infarction without residual deficits; Z79.82 Long term (current) use of aspirin; Z79.899 Other long term (current) drug therapy
CPT/HCPCS: 71010; 80048; 81001; 83735; 84484; 85025; 85610; 85730; 93005; 99285